=== PATIENT | female | born 1950 | race Caucasian/White ===

== ENCOUNTER → 2016-12-19 | Outpatient (CLI) | payer OTHER ==
[~2016-12-19] MED LIST: THYR16.2 PO
--- NOTE | 2016-12-19 12:30 | DIAGNOSTIC IMAGING REPORT ---
CHEST 2 VIEWS ROUTINE CLINICAL HISTORY: R06.00 [id number] FIRST COMPARISON STUDY: No previous studies for comparison. FINDINGS: The cardiac and mediastinal contours are normal. There is no evidence of focal pulmonary consolidation. There is no evidence of failure. No pleural effusions are visualized.[ IMPRESSION: No active disease in the chest. Electronically signed by: Jakob Mireles M.D. 12/19/2016 12:29 PM Dictated Date/Time: 12/19/2016 12:29 PM
[2016-12-19 12:59] LABS: BASO % 0.8 %; BASO ABS # 0.04 K/uL (0-0.2); COMPLETE YES; EOS % 2.4 %; HEMATOCRIT 39.9 % (37-47); LYMPH ABS # 2.05 K/uL (1.2-3.4); MEAN CELL VOLUME 88.3 fL (80-100); MEAN CORPUSCULAR HEMOGLOBIN 30.5 pg (25-34); MEAN CORPUSCULAR HGB CONC 34.6 g/dl (32-36); MONO % 12.4 %; NEUT % 43.4 %; PLATELET COUNT 213 K/uL (130-400); RED BLOOD COUNT 4.52 M/uL (4.2-5.4)
[2016-12-19 13:38] LABS: ALT/SGPT 29 U/L (12-78); AST/SGOT 22 U/L (15-37); BLOOD UREA NITROGEN 12 mg/dl (7-18); BUN/CREATININE RATIO 17.4 (10-20); CALCIUM 9.5 mg/dl (8.5-10.1); CARBON DIOXIDE 24 mmol/L (21-32); CHLORIDE 108 mmol/L (98-107); CREATININE 0.71 mg/dl (0.60-1.20); GLUCOSE 108 mg/dl (70-99); POTASSIUM 3.6 mmol/L (3.5-5.1); SODIUM 139 mmol/L (136-145)
[2016-12-19 13:41] LABS: ALB/GLOB RATIO 1.1 (0.9-2); ALKALINE PHOSPHATASE 69 U/L (45-117); TOTAL IRON BINDING CAPACITY 349 mcg/dl (250-450)
[2016-12-19 13:53] LABS: ESTIMATED AVERAGE GLUCOSE 128 mg/dl; HA1C FLAG Normal (Normal)
[2016-12-23 10:08] LABS: MICROSOMAL AB 212 IU/ML (<9); T3 REVERSE **TC 90963 11 ng/dL (8-25)
== END | disposition home or self-care (01) ==
LOC: C.RAD1850 12:05
PROVIDERS: ATTEND Physician Assistant
DX: R06.00 Dyspnea, unspecified (principal); E03.9 Hypothyroidism, unspecified

== ENCOUNTER → 2017-01-15 | Outpatient (CLI) | payer OTHER ==
--- NOTE | 2017-01-15 08:54 | DIAGNOSTIC IMAGING REPORT ---
SOFT TISS HEAD/NECK-THYROID CLINICAL HISTORY: 66 years-old Female presenting with R06.00 [id number]. TECHNIQUE: Real-time grayscale and color Doppler ultrasound imaging of the thyroid and base of the neck was performed. COMPARISON: None. FINDINGS: Right lobe: Hypoechoic echogenicity with heterogeneous echotexture. The right lobe of the thyroid measures 3.2 x 1.3 x 1.1 cm. No nodules. No parenchymal hyperemia. Left lobe: Hypoechoic echogenicity with heterogeneous echotexture area The left lobe of the thyroid measures 2.5 x 0.9 x 0.7 cm. Single hyperechogenic 0.9 x 0.5 x 0.8 cm well-defined nodule at the lower pole, which is wider than tall and without calcification (low suspicion pattern). No parenchymal hyperemia. Isthmus: The isthmus measures 3 mm in thickness. No nodules. IMPRESSION: Heterogeneous thyroid parenchyma could suggest underlying thyroid abnormality such as Martín's thyroiditis or Graves' disease. Single nonsuspicious subcentimeter nodule in the left lobe. Electronically signed by: Jamin Resendiz M.D. 01/15/2017 8:52 AM Dictated Date/Time: 01/15/2017 8:50 AM
== END | disposition home or self-care (01) ==
LOC: C.ULTR 08:21
PROVIDERS: ATTEND Physician Assistant
DX: R06.00 Dyspnea, unspecified (principal)